=== PATIENT | female | born 1960 | race Caucasian/White ===

== ENCOUNTER 2025-04-15 07:49 | Outpatient (OUT) | payer MEDICARE, SELFPAY ==
--- OUTSIDE RECORDS SUMMARY | 2025-04-15 07:56 | XMS_ITS | Clinical Summary ---
Author Organization Mc[facility] tem Address [id number] [address] [place] [address] Care Team Providers Care Jewel Grinder Name Role Phone Larry Perez MD Primary Care Provider [phone] Allergies Active AllergyReactionsCriticalityNoted MlyxEyerhhljLzxyqefpbkzJlpqYxj91/05/2017 IiiugbbgaEfzbQys92/05/2017 Medications MedicationSigDispense QuantityRefillsLast FilledStart DateEnd DateStatus acetaminophen (TYLENOL EXTRA STRENGTH) 500 mg tablet Take 2 tablets (1,000 mg total) by mouth every 6 (six) hours as needed for pain. Active ibuprofen (ADVIL,MOTRIN) 200 mg tablet Take 1 tablet (200 mg total) by mouth every 6 (six) hours as needed for pain. Active Active Problems ProblemNoted DateDiagnosed DateEncounter for diagnostic colonoscopy due to change in bowel roxlof1103/12/20182667Dtodjyqklvkdtc13/09/6298Xpngahm87/09/2018 Encounters DateTypeDepartmentCare PzhiZxgfmzqehff07/19/2025Orders Only [facility] [address] [place] [address] Larry Perez MD Pure hypercholesterolemia (Primary Dx); Vahobto8603/06/2025Telephone [facility] [address] [place] [address] Monique Anderson LPN 02/17/2025 8:30 AM EDTClinical Support [facility] [address] [place] [id number] BP check (Primary Dx)02/17/20250774Cgcnzv73/19/2025 11:30 AM EDTOffice Visit [facility] [address] [place] [address] Larry Perez MD Encounter for Medicare annual wellness exam (Primary Dx); Encounter for screening mammogram for malignant neoplasm of fdxnsr2902/03/2025 Travelfrom Last 3 Months Immunizations ImmunizationAdministration DatesNext DueCovid-19, Mrna, Lnp-s, Bivalent, Pf, 50mcg/0.5ml or 25mcg/0.25ml05/15/2022Influenza (IM) Preservative Free07/20/2017 Influenza, Injectable, Mdck, Preservative Free, Quad07/03/2019 Family History Medical HistoryRelationNameCommentsLung cancerFatherDiabetesMaternal Grandmother Ovarian cancerMotherDiabetesSisterBreast cancerNeg HxRelationNameStatusComments FatherDeceasedMaternal GrandmotherDeceasedMotherDeceasedSisterAlive Social History Tobacco UseTypesPacks/DayYears UsedDateSmoking Tobacco: NeverSmokeless Tobacco: Never Tobacco Cessation:Counseling Given: Not Answered Alcohol UseStandard Drinks/WeekCommentsNo0 (1 standard drink = 0.6 oz pure alcohol)rarelyAUDIT-CAnswerDate RecordedFrequency of Alcohol ConsumptionNever 03/12/2018Average Number of DrinksNot on file03/12/2018Frequency of Binge DrinkingNot on file03/12/2018PHQ-2AnswerDate RecordedTotal Nzenq150 ChildcareAnswerDate FpxymappVgiddjrmuCtzqrwy04/12/2019EmploymentAnswerDate WsnwsmnvEmxfbqwpevPaiseto45/12/2019Hunger ScreeningAnswerDate RecordedWithin the past 12 months we worried whether our food would run out before we got money to buy more.Never True02/03/2025Within the past 12 months the food we bought just didn't last and we didn't have money to get more.Never True02/03/2025Purpose - LifeAnswerDate RecordedPurpose and direction in mqakNtqiibl40/11/2021 CommentsNoSex and Gender InformationValueDate RecordedSex Assigned at BirthNot on fileLegal YyyBzmdac14/06/2015 11:26 AM EDTGender IdentityNot on fileSexual OrientationNot on fileOccupationIndustryJob Start DateJob End DateOffice AdministratorNot on fileNot on fileNot on file Last Filed Vital Signs Vital SignReadingTime TakenCommentsBlood Mxczdwmq132/9209/07/2024 8:38 AM EDT Ezfro6209/19/2025 11:15 AM LGKRnjnxiulupm36.7 ??C (99.8 ??F)04/25/2024 10:49 AM ESTRespiratory Xeld759702/03/2025 11:15 AM EDTOxygen Ttmmyvrvui71%02/03/2025 11:15 AM EDTInhaled Oxygen Concentration--Sgruwt10.4 kg (153 lb)02/03/2025 11:15 AM QUCWelajs951 cm (5' 3 )02/03/2025 11:15 AM EDTBody Mass Index27. 11:15 AM EDT Plan of Treatment Health MaintenanceDue DateLast DoneCommentsAdult BMI Follow Up Plan12/23/1977 DTaP,Tdap and Td Vaccines (1 - Tdap)12/23/1978Zoster (Shingles) Vaccine (1 of 2) 12/23/20094198Cqzjjrpwh32, 01/01/2013COVID-19 Vaccine (5 - season)/, 10/21/2021, 10/07/2020, Additional history exists Influenza Dngvjpy15/11/2022, 07/03/2019, 07/20/2017Adult BMI Screening Depression Xumxqtwvy74Fall Risk Screening Medicare Annual Wellness Visit/2025Tobacco Ezvhybfsk58/9008Ohcqelggzuo83Pap Smear Loosdnfscvnm56/20/2021 Medical Devices Not on file Procedures Procedure NamePriorityDate/TimeAssociated DiagnosisCommentsMAMM SCREENING BILATERAL W UQVHikvztu82/19/2021 2:09 PM EDT Encounter for screening mammogram for breast cancer PAP CKHOZNphwcqf26/20/2021 5:28 PM EDT Cervical smear, as part of routine gynecological examination HM PGPNEYDHWTUTnfeojb06/22/2018from Last 3 Months or Most Recently Relevant to Health Maintenance Results * Mammography screening bilateral with CAD (01/03/2021 2:09 PM EDT)Anatomical RegionLateralityModalityBreastBilateralMammographySpecimen (Source)Anatomical Location / LateralityCollection Method / VolumeCollection TimeReceived Time Impressions 01/03/2021 2:32 PM EDT No mammographic evidence of malignancy. A 1 year screening mammogram is recommended. BI-RADS: 1 - Negative Narrative 01/03/2021 2:32 PM EDT PROCEDURE: Mammography screening bilateral with CAD 01/03/21 CLINICAL HISTORY: Screening TECHNIQUE:Bilateral digital 2-D mammography ?? was performed. Current study was also evaluated with a Computer Aided Detection (CAD) system. COMPARISON: 01/01/2013 FINDINGS: The breasts have scattered areas of fibroglandular density. No suspicious masses, calcifications, or other findings. Authorizing ProviderResult TypeResult StatusVero Méndez [facility] MAMMOGRAPHY ORDERABLESFinal Result * Pap Smear (11/04/2020 5:28 PM EDT)Specimen (Source)Anatomical Location / LateralityCollection Method / VolumeCollection TimeReceived Time11/04/2020 5:28 PM EDT11/05/2020 12:39 PM EDT Narrative COPATH - 11/08/2020 4:07 PM EDT [facility] ? [address] [place] [address] ? [place] [address] ? Gynecologic Cytology Consultation ? Patient Name: NOEMÍ ARAGON : 1960 (Age: 59) Gender: F Taken: 11/04/2020 Reported: 11/08/2020hysician(s): VERO MÉNDEZ ([phone]) Copy To: ?? [facility]. Rec. #: [id number] Acct: # [id number] Final Cytologic Interpretation ThinPrep Pap Test (Cervical): Satisfactory for evaluation. NEGATIVE FOR INTRAEPITHELIAL LESION OR MALIGNANCY. ?? [facility]/11/08/2020 Interpretation performed at [employer] [address], License number: [id number]. Electronically Signed Out By ?LIDIA Meyer(ASCP) Date of Last Menstrual Period: ? (None Given) Other Clinical Conditions: Z01.419 Housecalls Nurse exam wo/abn findings Postmenopausal Source of Specimen ??ThinPrep Pap Test (Cervical) ? Thin Prep Pap (TANNING DRUM OPERATOR) Fee Code(s): ?? G0145 The Pap test is a screening test with an inherent, but low, probability of error. The Pap test is primarily effective for the diagnosis and prevention of squamous cell carcinoma. Regular screening iscritical for prevention. ThinPrep liquid-based slides, which meet the Security Compliance Specialist criteria for automated screening, have been screened by the [employer] [facility] (as of 03/04/07) along with an additional manual rescreening by a carbide tool die maker and, if indicated, by a pathologist. Authorizing ProviderResult TypeResult Maria A Méndez MDPATHOLOGY/CYTOLOGY ORDERABLESFinal ResultPerforming OrganizationAddressCity/State/ZIP CodePhone Number COPATH * [facility] COLONOSCOPY (04/08/2018)Specimen (Source)Anatomical Location / Laterality Collection Method / VolumeCollection TimeReceived Time04/08/2018 Narrative Authorizing ProviderResult TypeResult StatusScanning Provider ExternalHEALTH MAINTENANCEFinal ResultPerforming OrganizationAddressCity/State/ZIP CodePhone Number MANUALLY TRANSCRIBED RESULTS from Last 3 Months or Most Recently Relevant to Health Maintenance Insurance Care Teams Team MemberRelationshipSpecialtyStart DateEnd Date Larry Perez MD [address] [place] [address] PCP - GeneralInternal Medicine12/29/24
--- NOTE | 2025-04-15 08:00 | MM_ITS ---
Patient Name: BRIANNA TAPIA MR#: [id number] : 1960 Exam Date: 04/15/2025 Ordering Doctor: RUTH BRUCE RADIOLOGY REPORT PROCEDURE: MM TOMOSYNTHESIS SCREENING BI COMPARISON: MM TOMOSYNTHESIS SCREENING BI, 01/03/2021. MG MAMM DARSHANA SCRN W CAD DIG, 05/04/2016. MG MAMM DARSHANA SCRN W CAD DIG, 01/01/2013. INDICATIONS: Screening Calculator Name NCI Breast Cancer Risk Assessment Tool 5 Year Breast Cancer Risk 1.40% Lifetime Breast Cancer Risk 5.10% Personal Breast Cancer No Personal Ovarian Cancer No Treatments None Family Cancers Mother with ovarian cancer at age ~70; Father with lung cancer at age ~68; Brother with lung cancer at age 62. LOCATION: [facility] BREAST COMPOSITION: There are scattered areas of fibroglandular density. FINDINGS: RIGHT BREAST: No significant suspicious finding. LEFT BREAST: No significant suspicious finding. DIAGNOSTIC CATEGORY 1--NEGATIVE. RECOMMENDATIONS: ROUTINE MAMMOGRAM AND CLINICAL EVALUATION IN 12 MONTHS. Dictated by: Zeeshan Armenta DO on 04/15/2025 at 11:25 Approved by: Zeeshan Armenta DO on 04/15/2025 at 11:29
[2025-04-15 08:54] LABS: Hematocrit 39.5 % (36.0-48.0); Hemoglobin 12.7 g/dL (12.0-16.0); Immature Granulocytes Abs Auto 0.02 10^3/uL (0.00-0.03); Immature Granulocytes Pct Auto 0.3 % (0.0-0.5); Lymphocytes Absolute Auto 2.0 10^3/uL (1.2-3.8); Mean Corpuscular HGB Conc 32.2 g/dL (29.9-35.2); Mean Corpuscular Hemoglobin 29.9 pg (26.7-34.0); Mean Corpuscular Volume 92.9 fL (81.0-99.0); Platelet Count 226 10^3/uL (150-450); Red Blood Count 4.25 10^6/uL (4.20-5.40); White Blood Count 6.1 10^3/uL (4.0-11.0)
[2025-04-15 09:05] LABS: Alanine Aminotransferase 21 U/L (14-59); Albumin Globulin Ratio 1.0; Albumin Level 4.0 g/dL (3.4-5.0); Alkaline Phosphatase 90 U/L (46-116); Anion Gap 13.9; Aspartate Amino Transferase 19 U/L (15-37); Blood Urea Nitrogen 14.0 mg/dL (7.0-18.0); Calcium 9.3 mg/dL (8.5-10.1); Carbon Dioxide 26.2 mmol/L (21.0-32.0); Chloride 105 mmol/L (98-107); Cholesterol 290 mg/dL (<=200); Estimated GFR (African America >60 (>=60 mL/min/1.73m^2); Estimated GFR (Non-African Ame >60 (>=60 mL/min/1.73m^2); Globulin 3.9 g/dL; Glucose 105 mg/dL (74-106); HDL Cholesterol 54 mg/dL (40-60); Potassium 4.1 mmol/L (3.5-5.1); Sodium 141 mmol/L (136-145); Thyroid Stimulating Hormone 2.075 uIU/mL (0.358-3.740); Total Protein 7.9 g/dL (6.4-8.2); Triglycerides 89 mg/dL (<=150); VLDL CHOLESTEROL 17.8 mg/dL
== END 2025-04-15 07:50 | disposition home or self-care (01) ==
LOC: MAMMO 07:54
PROVIDERS: PCP Student in an Organized Health Care Education/Training Program; Visit Provider Student in an Organized Health Care Education/Training Program
DX: Z12.31 Encounter for screening mammogram for malignant neoplasm of breast (principal); F41.9 Anxiety disorder, unspecified; E78.00 Pure hypercholesterolemia, unspecified; Z80.41 Family history of malignant neoplasm of ovary; Z80.1 Family history of malignant neoplasm of trachea, bronchus and lung
CPT/HCPCS: 36415; 77063; 77067; 80053; 80061; 84439; 84443; 85025